=== PATIENT | female | born 1995 | race Caucasian/White ===

== ENCOUNTER 2017-10-15 21:55 | Emergency (ER) | payer BC, OTHER ==
[2017-10-15] MEDS ORDERED: ALB18R INH (22:09)
--- NOTE | 2017-10-15 22:12 | ER Report ---
History and Physical Time Seen By MD: 22:07 Hx. of Stated Complaint: Pt reporting suddent chest tightness and shortness of breath today at a track meet at 1330 today. Pt has exercise induced asthma. Pt reports pain has not gone away. 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 She was in a track meet in [place] today. She has exercise-induced asthma and used her inhaler several times that improvement of her chest tightness. Patient continued to have chest discomfort after the meet. She contacted the team physician who advised some Benadryl. Her pain got worse and did not improve. She's had no recent URI cough sore throat, fever or chills. She has no leg swelling or calf pain. Patient states she has an IUD for control. She denies family history of DVT or PE. REVIEW OF SYSTEMS: Respiratory: No cough, no dyspnea. Cardiovascular: As above Gastrointestinal: No vomiting, no abdominal pain. Musculoskeletal: No back pain. Allergies: Coded Allergies: No Known Drug Allergies (Unverified , 10/15/17) Home Meds Active Scripts Oxycodone Hcl/Acetaminophen (PERCOCET 5-325 MG TABLET) 1 Each Tablet, 1 EACH PO Q4-6H Y for PAIN, #12 Prov:HELENA BELLO DO 10/16/17 Amoxicillin/Pot Clav 875-125 Mg Tab (AUGMENTIN 875-125 TABLET) 1 Each Tablet, 1 TAB PO Q12H for infection, #20 TAB TAKE ONE TABLET BY MOUTH EVERY 12 HOURS Prov:HELENA BELLO DO 10/16/17 Reported Medications Albuterol Sulfate (VENTOLIN HFA) 18 Gm Inh, 1-2 PUFF INH 3-4XD, INH 10/15/17 Reviewed Nurses Notes: Yes Old Medical Records Reviewed: Yes Constitutional Vital Sign - Last 24 Hours 10/15/17 10/15/17 10/15/17 10/15/17 22:00 22:03 22:05 22:10 Temp 97.9 Pulse 79 69 75 71 Resp 18 11 19 B/P (MAP) 123/61 (81) 123/61 Pulse Ox 96 97 99 93 O2 Delivery Room Air 10/15/17 10/15/17 10/15/17 10/15/17 22:15 22:20 22:25 22:35 Pulse 78 74 69 Resp 37 13 16 45 Pulse Ox 99 90 97 84 10/15/17 10/15/17 10/15/17 10/15/17 22:40 22:45 22:50 22:55 Pulse 86 82 86 86 Resp 11 11 13 8 Pulse Ox 95 96 100 96 10/15/17 10/15/17 10/15/17 10/15/17 23:00 23:05 23:10 23:15 Pulse 91 ? Resp 7 25 B/P (MAP) 113/83 (93) Pulse Ox 95 100 10/15/17 10/15/17 10/15/17 10/15/17 23:20 23:25 23:30 23:35 Pulse ? Resp 23 21 B/P (MAP) 117/82 (94) Pulse Ox 100 100 10/15/17 10/15/17 10/15/17 10/15/17 23:40 23:45 23:50 23:55 Pulse 156 89 118 95 Resp 23 23 29 23 B/P (MAP) 119/75 (90) Pulse Ox 89 97 99 100 10/16/17 10/16/17 10/16/17 10/16/17 00:00 00:05 00:10 00:15 Pulse 98 86 90 97 Resp 18 20 35 B/P (MAP) 128/78 (95) Pulse Ox 96 96 98 10/16/17 10/16/17 10/16/17 00:20 00:25 00:30 Pulse 94 85 104 Resp 19 15 25 B/P (MAP) 117/45 (69) Pulse Ox 91 96 93 Physical Exam General Appearance: The patient is alert, has no immediate need for airway protection and no current signs of toxicity. Vital signs stable, afebrile, pulse ox normal HEENT: Pupils equal and round no injection. Oropharynx without redness or exudate. Mucous membranes are moist Respiratory: Chest is non tender, lungs are clear to auscultation. Cardiac: regular rate and rhythm Gastrointestinal: Abdomen is soft and non tender, no masses, bowel sounds normal. Musculoskeletal: Neck: Neck is supple and non tender. Extremities have full range of motion and are non tender. Skin: No rashes or lesions. DIFFERENTIAL DIAGNOSIS: After history and physical exam differential diagnosis was considered for pleurisy, bronchitis, pneumonia, pulmonary embolism, GERD, spontaneous pneumothorax. Medical Decision Making Data Points Laboratory Hematology Test 10/15/17 23:05 Urine HCG, Qualitative Negative (NEGATIVE) Chemistry Test 10/15/17 23:05 Urine HCG, Qualitative Negative (NEGATIVE) Urinalysis Test 10/15/17 23:05 Urine HCG, Qualitative Negative (NEGATIVE) EKG/Imaging EKG Interpretation 12 lead EK Rhythm: normal sinus rhythm with sinus arrhythmia, rate approximately 65 bpm [place]: normal QRS: normal ST segments: normal, no evidence of ischemia or dysrhythmia ED Course/Re-evaluation ED Course Patient was admitted to an examination room. H&P was done. The differential diagnoses was considered. On clinical examination. Patient has chest pain was stable vital signs. She is afebrile. She's been feeling ill since this morning. The chest pain is getting worse. Patient's EKG was unremarkable. A chest x-ray shows pneumomediastinum. Patient has no history of esophageal disease to suggest perforation. A CT scan of the chest was performed. Patient will be covered with Augmentin in case as potential for infection. She is given some Percocet for pain relief. She is advised ibuprofen. She will follow up with the team physician, Dr. Ndiaye on Tuesday. She is cautioned return to the ER for any fevers, feeling worse, especially shortness of breath. Decision to Disposition Date: Oct 16, 2017 Decision to Disposition Time: 00:18 Depart Departure Latest Vital Signs Vital Signs Date Time Temp Pulse Resp B/P (MAP) Pulse Ox O2 Delivery O2 Flow Rate FiO2 10/16/17 00:30 104 25 93 10/16/17 00:20 117/45 (69) 10/15/17 22:03 97.9 Room Air Impression: Primary Impression: Pneumomediastinum Additional Impressions: Exercise-induced asthma Chest pain on breathing Condition: Improved Disposition: HOME OR SELF-CARE New Scripts Oxycodone Hcl/Acetaminophen (PERCOCET 5-325 MG TABLET) 1 Each Tablet 1 EACH PO Q4-6H Y for PAIN, #12 Prov: HELENA BELLO DO 10/16/17 Amoxicillin/Pot Clav 875-125 Mg Tab (AUGMENTIN 875-125 TABLET) 1 Each Tablet 1 TAB PO Q12H for infection, #20 TAB TAKE ONE TABLET BY MOUTH EVERY 12 HOURS Prov: HELENA BELLO DO 10/16/17 Patient Instructions: Asthma (ED) Additional Instructions: Chest x-ray and CAT scan so pneumomediastinum likely from spontaneous airway rupture Return to the ER for increasing shortness of breath or fever Follow-up with team physician on Tuesday Problem Qualifiers HELENA BELLO DO Oct 15, 2017 22:12
[2017-10-15] MEDS ORDERED: MAG HYD/AL HYD/SIMETH 30ML UDC PO ONE (22:20)
[2017-10-15] MEDS ORDERED: LIDOCAINE 2% VISC SLN 15ML UDC PO ONE (22:20)
--- NOTE | 2017-10-15 22:55 | RADIOLOGY IMAGING REPORT ---
[place] [facility] [place]: Katya Rivero : 1995 MR: [id number] V: [id number] EXAM DATE: ORDERING PHYSICIAN: HELENA BELLO TECHNOLOGIST: Location: [facility] - [place] Patient: Katya Rivero : 1995 Visit/Account:[id number] Date of Sevice: 10/15/2017 EXAMINATION: PA and Lateral Chest 10/15/2017 10:17 PM HISTORY: sharp CP COMPARISON: None FINDINGS: Cardiomediastinal contours: Pneumomediastinum. Heart size is normal. Lungs and pleura: Lungs are clear of infiltrate or consolidation. No visible pneumothorax on either s quinn. Bones/soft tissues: There is some gas tracking into the neck base particularly on the right. IMPRESSION: Pneumomediastinum with gas tracking up into the neck base. CT chest may define the etiolo gy. Water-soluble contrast in the esophagus would be useful.. It would probably be reasonable to star t the scan slightly above the thoracic inlet without doing a full CT neck. Report Dictated By: Justus Wen MD at 10/15/2017 10:45 PM Report E-Signed By: Justus Wen MD at 10/15/2017 10:50 PM WSN:[id number]
--- NOTE | 2017-10-16 00:09 | RADIOLOGY IMAGING REPORT ---
FACILITY: [facility] - [place] PATIENT NAME: Katya Rivero : 1995 MR: [id number] V: [id number] EXAM DATE: ORDERING PHYSICIAN: HELENA BELLO TECHNOLOGIST: Location: [facility] - [place] Patient: Katya Rivero : 1995 Visit/Account:[id number] Date of Sevice: 10/15/2017 EXAMINATION: CT Chest Without Contrast 10/15/2017 11:01 PM HISTORY: pneumomediastinum on CXR, hx asthma, track athlete TECHNIQUE: Spiral scan was obtained through the chest without contrast. One of the following dose optimization techniques was utilized in the performance of this exam: Autom ated exposure control; adjustment of the mA and/or kV according to the patient's size; or use of an i terative reconstruction technique. Specific details can be referenced in the facility's radiology C T exam operational policy. COMPARISON STUDIES: none. FINDINGS: Lungs / pleura: Negative. No pleural gas. Bronchial dye are not significantly thickened. Lungs are symmetrically aerated. Mediastinum / priscilla: Pneumomediastinum. No mediastinal fluid collection demonstrated. Heart / pericardium: Negative. No pneumopericardium. Vessels: negative Musculoskeletal / Body wall: negative Lymph node assessment: negative Lower neck: Soft tissue gas extends in the neck more on the right. Upper abdomen: negative IMPRESSION: Pneumomediastinum with soft tissue gas extending up into the neck. This may be from spontaneous airwa y injury. Lack of mediastinal fluid makes esophageal perforation or rupture less likely. The patient was not administered water-soluble contrast within the esophagus. Report Dictated By: Justus Wen MD at 10/15/2017 11:56 PM Report E-Signed By: Justus Wen MD at 10/16/2017 12:05 AM WSN:[id number]
--- NOTE | 2017-10-16 00:17 | EKG ---
FACILITY: [facility] PATIENT NAME: BANDAR HUERTA : [id number] MR: [id number] V: [id number] EXAM DATE: ORDERING PHYSICIAN: HELENA BELLO TECHNOLOGIST: TRISTAN Test Reason : CHEST PAIN Blood Pressure : / mmHG Vent. Rate : 065 BPM Atrial Rate : 065 BPM P-R Int : 142 ms QRS Dur : 078 ms QT Int : 442 ms P-R-T Axes : 067 075 048 degrees QTc Int : 459 ms Normal sinus rhythm with sinus arrhythmia Normal ECG No previous ECGs available Confirmed by JAIME DAMICO ([id number]) on 10/16/2017 1:43:57 AM Referred By: Confirmed By:JAIME DAMICO
[2017-10-16 00:20] VITALS: BP 117/45
[2017-10-16] MEDS ORDERED: KETOROLAC 30 MG/ML VIAL IVP ONE (00:20)
[2017-10-16] MEDS ORDERED: AMOX/CLAV 875 MG TAB PO ONE (00:20)
[2017-10-16] MEDS ORDERED: oxyCODONE/ACETAMIN 5/325MG TH 2 TAB/BOTTLE PO ONE (00:20)
[2017-10-16] MEDS ORDERED: AMOX-559 PO (00:23)
[2017-10-16] MEDS ORDERED: OXYC-865 PO (00:23)
== END 2017-10-16 00:30 | disposition home or self-care (01) ==
LOC: ER 22:06
DX: J98.2 Interstitial emphysema (principal); J45.990 Exercise induced bronchospasm
CPT/HCPCS: 71046; 71250; 81025; 93005; 96374; 99284; J1885

== ENCOUNTER → 2017-10-21 | Outpatient (CLI) | payer BC ==
[~2017-10-21] MED LIST: ALB18R INH; AMOX-559 PO; OXYC-865 PO
--- NOTE | 2017-10-21 16:39 | RADIOLOGY IMAGING REPORT ---
FACILITY: [facility] PATIENT NAME: Katya Rivero : 1995 MR: [id number] V: [id number] EXAM DATE: ORDERING PHYSICIAN: SAM CHILDS TECHNOLOGIST: Location: [facility] - [place] Patient: Katya Rivero : 1995 Visit/Account:[id number] Date of Sevice: 10/21/2017 2 VIEWS CHEST INDICATION: Pancreas inspiration. History of pneumothorax. COMPARISON: 10/15/2017. FINDINGS: Cardiomediastinal silhouette and pulmonary vessels within normal limits. There is no focal infiltrate or lobar consolidation. There is a persistent small medial left pneumomediastinum seen along the mediastinum and heart border . This is similar to the previous examination. The previously seen small right medial pneumomediastin um is not appreciated. No pneumothorax is identified. No pleural effusion. No discrete nodule. Upper abdomen is unremarkable. No acute bony abnormality. IMPRESSION: 1. Persistent small left pneumomediastinum. No associated sequelae. No focal infiltrate or pneumotho rax. Report Dictated By: Axel Geller at 10/21/2017 4:32 PM Report E-Signed By: Axel Geller at 10/21/2017 4:35 PM WSN:[id number]
== END ==
LOC: RAD 16:07
PROVIDERS: ATTEND Emergency Medicine Sports Medicine
DX: J98.2 Interstitial emphysema (principal)
CPT/HCPCS: 71046

== ENCOUNTER → 2017-10-25 | Outpatient (CLI) | payer BC ==
[~2017-10-25] MED LIST changes: +BARIUM SULFATE 176 GM BTL PO ONE; +BARIUM SULFATE 340 GM POWD ONE
--- NOTE | 2017-10-25 17:17 | RADIOLOGY IMAGING REPORT ---
FACILITY: [facility] PATIENT NAME: Katya Rivero : 1995 MR: [id number] V: [id number] EXAM DATE: ORDERING PHYSICIAN: [facility] TECHNOLOGIST: Location: [facility] - [place] Patient: Katya Rivero : 1995 Visit/Account:[id number] Date of Sevice: 10/25/2017 Exam type: ESOPHAGRAM History: Prior pneumomediastinum Comparison: October 21, 2017. Findings: Preliminary stitch bonding machine operator film of the chest no longer demonstrates a pneumomediastinum. The lungs are free o f consolidation. The cardiac swelling is normal. Double contrast esophagram was performed with thick and thin barium. There was no extraluminal leaka ge of the barium from the esophagus. There is no evidence of esophageal narrowing or mucosal abnorma lity. Gastroesophageal reflux was not observed. The fluoroscopy dose area product was 114.59 micro- Cruz per meter squared IMPRESSION: 1. Unremarkable esophagram No evidence of a pneumomediastinum at this time Report Dictated By: Liat Lauren MD at 10/25/2017 5:10 PM Report E-Signed By: Liat Lauren MD at 10/25/2017 5:14 PM LUCASN:WILLA
== END ==
LOC: RAD 01:33
DX: R07.9 Chest pain, unspecified (principal)
CPT/HCPCS: 74220

== ENCOUNTER → 2017-11-03 | Outpatient (CLI) | payer BC ==
[~2017-11-03] MED LIST changes: -BARIUM SULFATE 176 GM BTL PO ONE; -BARIUM SULFATE 340 GM POWD ONE
--- NOTE | 2017-11-03 14:54 | RADIOLOGY IMAGING REPORT ---
FACILITY: [facility] PATIENT NAME: Katya Rivero : 1995 MR: [id number] V: [id number] EXAM DATE: ORDERING PHYSICIAN: DARBY KIRBY TECHNOLOGIST: Location: [facility] Patient: Katya Rivero : 1995 Visit/Account:[id number] Date of Sevice: 11/03/2017 Exam type: CHEST PA AND LAT History: Pneumomediastinum follow-up Comparison: October 21, 2017. Findings: There is no evidence of a pneumomediastinum at this time. The lungs are free of consolidation. No e vidence of pleural effusions or pulmonary edema. The cardiac silhouette is normal in size. IMPRESSION: 1. Unremarkable chest with no evidence of a pneumomediastinum at this time Report Dictated By: Liat Lauren MD at 11/03/2017 2:48 PM Report E-Signed By: Liat Lauren MD at 11/03/2017 2:49 PM LUCASN:WILLA
== END ==
LOC: RAD 14:01
PROVIDERS: ATTEND Internal Medicine
DX: R07.9 Chest pain, unspecified (principal)
CPT/HCPCS: 71046